=== PATIENT | female | born 1935 | race Caucasian/White ===

== ENCOUNTER → 2017-04-21 | Outpatient (CLI) | payer OTHER, MEDICARE ==
[~2017-04-21] MED LIST: AMOXICILLIN 50500 M1 PO; ASPIRIN325; B12INJ IM; CARDIZEM CD180 MG PO; CRESTOR5 MG PO; DEMADEX10 MG PO; MOTION RELIEF25 MG PO; OMEGA-31000 M1 PO; SAVAYSA60 MG PO; TENORMIN25 MG PO; VITAMIN D-32000 UNIT PO; VITAMIN D2000 UNIT PO; ZOFRAN ODT4 MG PO
== END ==
LOC: ULTRA 07:45
DX: R22.1 Localized swelling, mass and lump, neck (principal); E01.0 Iodine-deficiency related diffuse (endemic) goiter

== ENCOUNTER → 2018-04-21 | Outpatient (CLI) | payer OTHER, MEDICARE | LOC: CAT 04-19 10:38 | DX: I71.4 Abdominal aortic aneurysm, without rupture (principal); I72.3 Aneurysm of iliac artery; I70.8 Atherosclerosis of other arteries; I51.7 Cardiomegaly; I25.10 Atherosclerotic heart disease of native coronary artery without angina pectoris; N28.1 Cyst of kidney, acquired; R18.8 Other ascites; Z90.49 Acquired absence of other specified parts of digestive tract; Z96.642 Presence of left artificial hip joint ==

== ENCOUNTER 2018-05-10 06:34 | Observation (INO) | payer OTHER, MEDICARE ==
[2018-05-10] VITALS (14 sets, daily range): BP systolic 101–118; BP diastolic 44–82
[~2018-05-10] VITALS: Ht 170.2 cm; Wt 63.1 kg
--- NOTE | ~2018-05-10 | D ---
[facility] [place] [address] DISCHARGE SUMMARY Name: HERO SCHMITZ I Room #: REG Mary CobianNicholasGeo.#: [id number] Admission: 05/10/18 ������������������ Attend Phys: Ritesh Leyva MD, Discharge: ������������������ Date of : 35 Report #: [id number] THIS REPORT FOR: //name// CC: Ritesh Sifuentes DATE OF SERVICE: 05/10/2018 DISCHARGE DIAGNOSES: 1. Unstable angina with severe proximal LAD disease for which she underwent stenting with a 4.0 x 12 mm Integrity bare-metal stent, dilated to 4.8 mm with a noncompliant balloon. 2. Permanent atrial fibrillation. 3. Secundum atrial septal defect. 4. Abdominal aortic aneurysm, infrarenal. 5. Dyslipidemia. 6. Bilateral asymptomatic carotid stenoses. 7. Chronic liver disease. HISTORY OF PRESENT ILLNESS: For the complete details of the history of present illness, see dictated history and physical. Briefly, the patient is an 82-year-old woman with remote bypass surgery, permanent atrial fibrillation, hypertension and recently identified abdominal aortic aneurysm and secundum-type atrial septal defect. She recently underwent abdominal aortography and coronary angiography. 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 She now presents for intervention to the proximal LAD. HOSPITAL COURSE: The patient underwent coronary angiography and intervention to the proximal LAD with initial angioplasty and then stenting with a 4.0 x 12 mm Integrity bare-metal stent. She was treated with heparin, Integrilin, aspirin and Plavix in the periprocedural setting. She was ambulating and pain free with excellent groin hemostasis at the time of discharge. A bare-metal stent was used for two reasons; one was a very large diameter vessel with low risk for restenosis and plans are underway for abdominal aortic stent graft repair, probably within the next couple of months. Her medicines were reconciled. DISCHARGE DIET: Low fat, low cholesterol, prudent diabetic diet. DISCHARGE MEDICINES: Atenolol 25 mg twice daily, apixaban 5 mg twice daily starting on the , diltiazem CD 240 mg daily, rosuvastatin 5 mg daily, torsemide 20 mg daily, and a multivitamin. Arrangements were made to see me back in the office in one month. [address] [address] DISCHARGE SUMMARY Name: HERO SCHMITZ I Room #: REG GEENAMary Leggett#: [id number] Admission: 05/10/18 ������������������ Attend Phys: Ritesh Leyva MD, Discharge: ������������������ Date of : 35 Report #: [id number] ACTIVITY: As instructed post-catheterization. DISCHARGE CONDITION: Stable and improved. ��������������������������������������������� ���������������������������������������� By: ��������������������������������������������� 1013 1032 Ritesh Leyva MD, FACC /nt
[~2018-05-10 06:34] MED LIST changes: -CARDIZEM CD180 MG PO; +CARDIZEM CD240 MG PO
[2018-05-10 07:24] LABS: HEMATOCRIT 43.4 % (37.0-47.0); HEMOGLOBIN 14.4 gm/dL (12.0-15.0); MCH 32.2 pg (26.0-34.0); MCHC 33.1 g/dL (28.0-37.0); MCV 97.2 fL (80.0-100.0); RBC 4.46 mil/uL (4.20-5.00); RDW 14.5 % (10.5-14.5); WBC 4.6 thou/uL (4.0-11.0)
[2018-05-10] MEDS ORDERED: ELIQUIS5 MG PO (07:26)
[2018-05-10 07:35] LABS: CALCIUM 9.1 mg/dL (8.5-10.1); POTASSIUM 4.1 mmol/L (3.5-5.1)
--- NOTE | 2018-05-10 10:07 | CATHLAB ---
[facility] [address] [facility] [place] [address] INVASIVE PROCEDURE REPORT Name: HERO SCHMITZ I [facility]: [facility] [id number] ������������� Admission: 05/10/18 ������������� Attend Phys: Ritesh Leyva, Discharge: ��� ������������� ��� Date of : 35 Date of Service: 05/10/18 1006 �� Report #: [id number] �������� ��������������������������������������������[id number] THIS REPORT FOR: //name// APPROVED REPORT Study performed: 05/10/2018 07:36:29 Patient Details Patient Status: Out-Patient Room #: The patient is a 82 year-old female Event Personnel Ritesh Leyva Irrigation Teacher, Meg Hong, Guillermo Handley Penny, Wes RN Procedures Performed Art Access - R femoral artery* BMS Place w/wo Plasty Single LAD [id number] BMSSINGLE Hemostasis with Manual pressure Indication Chest pain Procedure Narrative The patient was brought electively to the Cardiac Catheterization Laboratory and was prepped and draped in a sterile manner. The right femoral vein was infiltrated with 1% Lidocaine subcutaneous anesthesia. A PINNACLE 6FR Sheath #[id number] sheath was inserted into the RFA^. Coronary angiography was performed using coronary diagnostic catheters. Hemostasis was obtained with manual pressure following sheath removal without any complications. The patient tolerated the procedure well and there were no complications associated with the procedure. There was no hematoma. Intraoperative Conscious Sedation Sedation start time: 7.51 Case end Time: 9.15 Fentanyl 50 mcg Versed 1.5 mg Fluoro Time: 19.48 minutes Dose: DAP 9625.50 cGycm2 1476 mGy Contrast Type and Amount: Visipaque 235 ml Coronary Angiography The patient's coronary anatomy is right dominant. [facility] [place] [address] [place] [address] INVASIVE PROCEDURE REPORT Name: HERO SCHMITZ I Room #: REG [facility]#: [id number] ������������� Admission: 05/10/18 ������������� Attend Phys: Ritesh Leyva, Discharge: ��� ������������� ��� Date of : 35 Date of Service: 05/10/18 1006 �� Report #: [id number] �������� ��������������������������������������������[id number] Hemodynamics The aortic pressure is 115/68 mmHg with a mean of 91 mmHg. PCI Technique Lesion Anticoagulation was achieved with Heparin, Integrilin. Patient was preloaded with Plavix. Percutaneous coronary intervention was performed on the proximal left anterior descending artery segment. The lesion stenosis prior to intervention was 95% with DICK 3 flow. A LAUNCHER 6FR EBU 3.5 #[id number] Guide Catheter was used to engage the left main ostium. A Luge Wire .014 x 182CM #[id number] Interventional Guidewire was used to cross the lesion. BALLOON DILATION A Balloon catheter Euphora RX 3.0 x 12 #[id number] was inserted and inflated up to 18.00atm for 40seconds. Repeat angiography revealed the following post-dilatation results: moderate residual stenosis despite multiple high pressure inflations with several noncompliant balloons.. 2.5 x 12 NC TREK 3.5 X 8 NC TREK 02/12 STENT DEPLOYMENT A bare metal stent INTEGRITY RX 4.0 X 12 #[id number] was inserted and inflated up to 15.00atm for 23seconds. Repeat angiography revealed the following post-stent deployment results: 20% residual stenosis. POST STENT DEPLOYMENT BALLOON DILATION A Balloon catheter TREK NC RX 4.5 X 8 #[id number] was inserted and inflated up to 20.00atm for 28seconds. Repeat angiography revealed the following post-dilatation results: mild 10% residual stenosis. Additional Inflation: 22.00atm for 20seconds. Final angiography reveals 5 % stenosis with DICK 3 flow. COMMENTS Very bulky, calcified stenosis initially treated with gradually increasing-sized noncompliant balloons, then treated with a bare metal stent dilated to close to 4.8 mm with a noncompliant balloon Conclusion 1. For the full details of the diagnostic study see prior angiographic dictation 2. Mild left main plaquing 3. Severe 95% proximal LAD stenosis successfully ballooned and [facility] [address] [place] [address] INVASIVE PROCEDURE REPORT Name: HERO SCHMITZ I Room #: REG CL Betsey#: [id number] ������������� Admission: 05/10/18 ������������� Attend Phys: Ritesh Leyva, Discharge: ��� ������������� ��� Date of : 35 Date of Service: 05/10/18 1006 �� Report #: [id number] �������� ��������������������������������������������[id number] stented with a 4.5 x 12 mm Integrity bare-metal stent, dilated to close to 4.8 mm with a noncompliant balloon Recommendations Cardiac Rehabilitation Referral Aggressive Medical Therapy ��������������������������������������������� <ELECTRONICALLY SIGNED> ���������������������������������������� By: Ritesh Leyva MD, [facility] ��������������������������������������������� 05/10/18 1006 05 05 Ritesh Leyva MD, FAC /INF
[2018-05-10] MEDS ORDERED: PLAVIX 75 MG TA75 M1 PO (10:17)
--- NOTE | 2018-05-10 17:14 | EKG ---
[address] [address] ELECTROCARDIOGRAM REPORT Name: HERO SCHMITZ I Room #: 200-I [facility]#: [id number] ������������������ Admission: 05/10/18 ������������������ Attend Phys: Ritesh Leyva MD, Discharge: ������������������ Date of : 35 Report #: [id number] ����������������������������������������������������������������� [id number] THIS REPORT FOR: //name// [facility] Test Date: 2018-05-10 Test Time: 07:25:48 Pat Name: HERO SCHMITZ Department: Room: 200 Gender: F Manager Audit: Timmy TIAN : 1935 Requested By: Ritesh Leyva Order Number: [id number] MD: Ritesh Leyva Measurements Intervals [place] Rate: 94 P: [place]: QRS: 98 QRSD: 133 T: 11 QT: 380 QTc: 476 Interpretive Statements Atrial fibrillation Rightward axis Right ventricular conduction delay Compared to ECG 03/13/2016 07:11:40 No significant change was found Electronically Signed On 05-10-2018 17:14:44 CDT by Ritesh Leyva [email or web address] ��������������������������������������������� <ELECTRONICALLY SIGNED> ���������������������������������������� By: Ritesh Leyva MD, [facility] ��������������������������������������������� 05/10/18 1714 Ritesh Leyva MD, [facility] /EPI
--- NOTE | 2018-05-10 17:17 | EKG ---
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 TIAN : 1935 Requested By: Ritesh Leyva Order Number: [id number] MD: Ritesh Leyva Measurements Intervals [place] Rate: 99 P: [place]: QRS: 97 QRSD: 112 T: 10 QT: 404 QTc: 519 Interpretive Statements Atrial fibrillation Probable anteroseptal infarct, old Prolonged QT interval Compared to ECG 03/13/2016 07:11:40 No significant change was found Electronically Signed On 05-10-2018 17:17:41 CDT by Ritesh Leyva [email or web address] ��������������������������������������������� <ELECTRONICALLY SIGNED> ���������������������������������������� By: Ritesh Leyva MD, [facility] ��������������������������������������������� 05/10/18 1717 0940 0940 Ritesh Leyva MD, [facility] /EPI
--- NOTE | 2018-05-10 17:31 | NUR ---
PT ARRIVED FROM [facility] POST STENT PLACEMENT AT APPROX 1055. PT ALERT AND ORIENTED X4. DENIES SOA. C/O 8/10 LBP. TILTING PT TO RIGHT SIDE AND THEN BACK INTERMITTENTLY FOR REPOSITIONING TO HELP MANAGE LOWER BACK PAIN. DR AGUIRRE AWARE. TYLENOL GIVEN TO MANAGE PAIN WELL. VSS. PT'S DAUGHTER AT BEDSIDE. BOTH DENY QUESTIONS OR CONCERNS REGARDING POST CATH POC. RIGHT GROIN POST CATH SITE C/D/I. NO HEMATOMA PRESENT. STEADY GAIT WAS ASSESSED AFTER BEDREST WAS COMPLETED. PT REPORTS RELIEF IN LOWER BACK PAIN. POST CATH IVF INFUSED AND PT SALINE LOCKED AT THIS TIME. NO DISTRESS NOTED.
[2018-05-11 00:35] VITALS: BP 105/62
[2018-05-11 03:29] VITALS: BP 115/55
[2018-05-11 03:58] LABS: CALCIUM 8.7 mg/dL (8.5-10.1); CREATININE 0.8 mg/dL (0.6-1.0); POTASSIUM 4.2 mmol/L (3.5-5.1); TOTAL BILIRUBIN 0.9 mg/dL (<0.1-1.0); TOTAL PROTEIN 6.2 g/dL (6.4-8.2); TROPONIN-I 0.16 ng/mL (<0.06)
--- NOTE | 2018-05-11 04:08 | NUR ---
PT. OVER CHAIR DURING SHIFT CHANGE; AOX4; NO C/O PAIN THROUGH THE NIGHT; VS WNL; R. GROIN INTACT; NO HEMATOMA; NO PAIN; SOME BRIGHT RED DISCHARGE FROM NOISE WHEN BLOWING; WATER LUBRICANT GIVEN; ABLE TO REST MOST OF THE NIGHT WITH EYES CLOSE; ASSESSMENT CHARGED; FOLLOWIN POC; WILL PASS ON REPORT.
[2018-05-11 04:32] VITALS: BP 115/55
[2018-05-11 04:39] LABS: HEMATOCRIT 41.3 % (37.0-47.0); HEMOGLOBIN 13.6 gm/dL (12.0-15.0); MCH 32.2 pg (26.0-34.0); MCHC 32.8 g/dL (28.0-37.0); MCV 98.1 fL (80.0-100.0); RBC 4.21 mil/uL (4.20-5.00); RDW 14.8 % (10.5-14.5); WBC 4.7 thou/uL (4.0-11.0)
[2018-05-11 07:15] VITALS: BP 105/71
[2018-05-11 11:10] VITALS: BP 105/71
--- NOTE | 2018-05-11 17:59 | EKG ---
[address] [address] ELECTROCARDIOGRAM REPORT Name: HERO SCHMITZ Mary Room #: 200-I [facility]#: [id number] ������������������ Admission: 05/10/18 ������������������ Attend Phys: Ritesh Leyva MD, Discharge: 05/11/18 ������������������ Date of : 35 Report #: [id number] ����������������������������������������������������������������� [id number] THIS REPORT FOR: //name// [facility] Test Date: 2018-05-11 Test Time: 07:04:59 Pat Name: HERO SCHMITZ Department: Room: 200 I Gender: F Neuroscientist: : 1935 Requested By: Ritesh Leyva Order Number: [id number] MD: Ritesh Leyva Measurements Intervals [place] Rate: 88 P: PA: QRS: 95 QRSD: 112 T: 0 QT: 393 QTc: 476 Interpretive Statements Atrial fibrillation Borderline intraventricular conduction delay Compared to ECG 05/10/2018 09:40:01 Myocardial infarct finding no longer present Prolonged QT interval no longer present Electronically Signed On 05-11-2018 17:59:04 CDT by Ritesh Leyva [email or web address] ��������������������������������������������� <ELECTRONICALLY SIGNED> ���������������������������������������� By: Ritesh Leyva MD, [facility] ��������������������������������������������� 05/11/18 1759 0704 0704 Ritesh Leyva MD, [facility] /EPI
--- NOTE | 2018-05-11 20:39 | NUR ---
ASSUMED CARE AT 0700. PT A&OX4. PT ON ROOM AIR SITTING UP IN CHAIR. VSS. PT DENIES PAIN. PT UP AD RAVI IN ROOM. PT STEADY ON FEET. D/C ORDERED. PHYSICIAN ALREADY GAVE PT PRESCRIPTION FOR PLAVIX. RN GAVE PT MEDICATION CARE NOTES AND D/C PAPERWORK. IV REMOVED INTACT. GROIN SITE SOFT, NO HEMATOMA.
== END 2018-05-11 12:15 | disposition home or self-care (01) ==
LOC: CATH 06:34 → 2N 10:40 → CATH 12:16 → ENTRNSPT 05-11 11:46 → EDTRNSPTSTS 05-11 11:51 → 2N 05-11 12:15
PROVIDERS: ADMIT Internal Medicine
DX: I25.110 Atherosclerotic heart disease of native coronary artery with unstable angina pectoris (principal); I48.2 Chronic atrial fibrillation; E78.5 Hyperlipidemia, unspecified; I65.23 Occlusion and stenosis of bilateral carotid arteries; K76.9 Liver disease, unspecified; I71.4 Abdominal aortic aneurysm, without rupture; Q21.1 Atrial septal defect; I10 Essential (primary) hypertension; Z88.5 Allergy status to narcotic agent; Z72.0 Tobacco use

== ENCOUNTER 2018-06-21 05:14 | Inpatient (IN) | payer OTHER, MEDICARE ==
[2018-06-15 10:17] LABS: ABSOLUTE NEUTROPHILS 2.1 thou/uL (1.4-8.2); BASOPHILS 0.7 % (0.0-2.0); EOSINOPHILS 1.5 % (0.0-3.0); HEMATOCRIT 43.7 % (37.0-47.0); HEMOGLOBIN 14.4 gm/dL (12.0-15.0); LYMPHOCYTES 30.2 % (24.0-44.0); MCH 32.4 pg (26.0-34.0); MCHC 32.8 g/dL (28.0-37.0); MCV 98.6 fL (80.0-100.0); MONOCYTES 6.4 % (1.0-8.0); POLYS 61.2 % (36.0-66.0); RBC 4.43 mil/uL (4.20-5.00); RDW 15.4 % (10.5-14.5); WBC 3.5 thou/uL (4.0-11.0)
[2018-06-15 10:39] LABS: APTT 30.3 Seconds (24.5-32.8); INR 1.2; PROTIME 12.1 Seconds (9.3-11.4)
[2018-06-15 10:51] LABS: ALBUMIN 3.9 g/dL (3.4-5.0); CALCIUM 9.3 mg/dL (8.5-10.1); CREATININE 0.7 mg/dL (0.6-1.0); POTASSIUM 3.6 mmol/L (3.5-5.1); TOTAL BILIRUBIN 0.9 mg/dL (<0.1-1.0)
[2018-06-15 10:52] LABS: URINE BLOOD NEGATIVE (Negative); URINE CLARITY CLEAR; URINE COLOR YELLOW; URINE GLUCOSE-RANDOM* NEGATIVE (Negative); URINE KETONES NEGATIVE (Negative); URINE LEUKOCYTES-REFLEX NEGATIVE (Negative); URINE NITRITE-REFLEX NEGATIVE (Negative); URINE PROTEIN (DIPSTICK) 1+ (Negative); URINE SPECIFIC GRAVITY 1.015 (1.005-1.035)
[2018-06-15 10:54] LABS: ICTOTEST (BILI CONFIRMATORY) Negative (Negative); URINE BILIRUBIN NEGATIVE (Negative)
[2018-06-15 11:01] LABS: BACTERIA-REFLEX 1-9 Few /HPF (None Seen); CASTS None Seen /LPF (None Seen); CRYSTALS None Seen /LPF (None Seen); SQUAMOUS >10 Many /LPF (0-3); URINE RBC 0-2 Rare /HPF (0-2); URINE WBC-REFLEX None Seen /HPF (0-5)
[2018-06-15 11:15] LABS: PLATELET COUNT 79 thou/uL (150-400)
[~2018-06-21] VITALS: Ht 170.2 cm; Wt 64.0 kg
[~2018-06-21 05:14] MED LIST changes: +CARTIA XT240 M1 PO; +ELIQUIS5 MG PO; +PLAVIX 75 MG TA75 M1 PO
[2018-06-21 13:19] VITALS: BP 116/65
[2018-06-21 17:40] VITALS: BP 125/78
--- NOTE | 2018-06-21 18:20 | NUR ---
ARRIVED IN ICU AT 1730 FROM RECOVERY ROOM. DROWSY BUT AWAKENS EASILY AND FOLLOWS COMMANDS. ORIENTED TO PERSON AND PLACE. VITALS STABLE AND DENIES PAIN, BILAT GROIN SITES WITH DRSSINGS C/D/I. A-LINE RT RADIAL WITH ADEQUATE WAVEFORM. HUANG WITH MINIMAL OUTPUT(EMPTIED IN RECOVERY PER REPORT). FAMILY UPDATED AND ICU GUIDELINES AND PRIVACY CODE GIVEN TO SISTER AND DAUGHTER. WILL CONTINUE TO MONITOR.
[2018-06-21 19:43] VITALS: BP 90/39
[2018-06-21 21:42] VITALS: BP 79/37
[2018-06-21 23:42] VITALS: BP 96/58
[2018-06-22] VITALS (20 sets, daily range): BP systolic 80–130; BP diastolic 41–68
[2018-06-22 06:15] LABS: HEMATOCRIT 37.4 % (37.0-47.0); HEMOGLOBIN 12.4 gm/dL (12.0-15.0); MCH 32.4 pg (26.0-34.0); MCHC 33.2 g/dL (28.0-37.0); MCV 97.7 fL (80.0-100.0); RBC 3.83 mil/uL (4.20-5.00); RDW 15.6 % (10.5-14.5); WBC 5.1 thou/uL (4.0-11.0)
[2018-06-22 06:37] LABS: CALCIUM 8.2 mg/dL (8.5-10.1); CREATININE 0.8 mg/dL (0.6-1.0); POTASSIUM 4.2 mmol/L (3.5-5.1)
--- NOTE | 2018-06-22 06:37 | NUR ---
ASSUMED CARE 1900 06/21/18, PT ASSESSMENTS AND VSS COMPLETE PER ICU PROTOCOL. PT ALERT AND ORIENTED X 4, PT ABLE TO FOLLOW COMMANDS, PT HAS HX OF LUMBAR DISC HERNIATION AND SO SHE CANNOT LIE FLAT ON HER BACK. PT IN A-FIB, PT DENIES HX OF AFIB, A LINE IN R RADIAL. PT ON 3L AT THIS TIME, USES 2L OF 02 HS AT HOME, NO SIGNS OF SOA. PT ON 2 GRAM DIET, PT ABLE TO EAT MEAL LAST NIGHT, PO INTAKE GOOD, HUANG IN PLACE. FALL PRECAUTIONS IN PLACE AT THIS TIME. PLAN OF CARE- CONT TO MONITOR
--- NOTE | 2018-06-22 15:19 | EKG ---
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 TIAN : 1935 Requested By: Erasmo Buckner Order Number: [id number] MD: Cj Morgan Measurements Intervals [place] Rate: 122 P: [place]: QRS: 86 QRSD: 105 T: -2 QT: 326 QTc: 465 Interpretive Statements Atrial fibrillation Borderline right axis deviation Borderline low voltage, extremity leads Abnormal R-wave progression, late transition Nonspecific repol abnormality, diffuse leads Compared to ECG 05/11/2018 07:04:59 Early repolarization now present Electronically Signed On 06-22-2018 15:19:03 CDT by Cj Morgan [email or web address] ��������������������������������������������� <ELECTRONICALLY SIGNED> ���������������������������������������� By: Cj Morgan MD ��������������������������������������������� 06/22/18 1519 1350 1350 Cj Morgan MD /EPI
--- NOTE | 2018-06-22 16:19 | NUR ---
PT IS ALERT AND ORIENTED X4. LUNGS ARE CLEAR TO DIMINISHED. ON 2 LITERS OXYGEN NASAL CANULA. AFIB ON THE MONITOR. ARTERIAL LINE PULLED. CARDIOLOGY CONSULTED PT NOT FEELING WELL NAUSEA, HEART BURN. CARDIOLOGY RESUMED MEDS AND PT IS FEELING BETTER NOW. RESTING IN BED. HAS BEEN OUT OF BED TO THE CHAIR. HAS CHRONIC BACK PAIN. [employer] RVR 122. HEART BURN AND NAUSEA RESOLVED. SCDS ON BILATERAL. FAMILY AT BEDSIDE THIS AM FOR SUPPORT. WILL CONTINUE ONGOING CARE AND TREATEMENT PER NURSING
--- NOTE | 2018-06-22 22:58 | NUR ---
ASSUMED CARE @ 1900 06/22/18, PT ASSESSMENTS AND VSS COMPLETED PER ICU PROTOCOL. ALERT AND ORIENTED X 4, PT ABLE TO FOLLOW COMMANDS, HX OF LUMBAR DISC HERNIATION, PT NOT ABLE TO LAY ON HER BACK. PT ENCOUNTERED ON THE CHAIR, PT REFUSES TO GO TO BED, SHE STATES SHE IS MORE COMFORTABLE IN THE CHAIR. PT ON 3L SATS IN THE HIGH 90'S, NO SIGNS OF SOA. DAUGHTER HERE TO VISIT WITH. REPORT GIVEN TO WALTER GRIGGS. PLAN OF CARE- CONT TO MONITOR.
[2018-06-23] VITALS (9 sets, daily range): BP systolic 91–111; BP diastolic 40–69
--- NOTE | 2018-06-23 05:33 | NUR ---
TOOK OVER CARE OF PATIENT AT 2300. PATIENT SLEEPING IN CHAIR WHICH IS MORE COMFORTABLE TO HER THAN THE BED. SHE HAS CHRONIC BACK PAIN, UNABLE TO SLEEP FLAT ON HER BACK. DENIES CHEST PAIN OR NAUSEA AT THIS TIME. DRINKING WATER. REQUESTED ONE TYLENOL WHEN PAIN WAS 8/10. NO PAIN MEDS REMAINED ON HER MARABDOULAYE,NELLA ADDED TYLENOL. PLAN OF CARE HAS PATIENT TRANSFERING OUT OF ICU.
--- NOTE | 2018-06-23 16:44 | NUR ---
PT DISCHARGING HOME. D/C INSTRUCTIONS REVIEWED WITH PATIENT AND SISTER. PT VERBALIZES UNDERSTANDING. THERE ARE NO NEW RX AT THIS TIME. ALL BELONGINGS SENT WITH PT
--- NOTE | 2018-06-25 12:06 | O ---
[facility] [place] [address] OPERATIVE REPORT Name: HERO SCHMITZ I Room #: 245-P [facility] IN M.R.#: [id number] Admission: 06/21/18 ������������������ Attend Phys: Erasmo Buckner MD Discharge: 06/23/18 ������������������ Date of : 35 Report #: [id number] THIS REPORT FOR: //name// CC: Erasmo Sifuentes DATE OF SERVICE: 06/21/2018 PREOPERATIVE DIAGNOSIS: Abdominal aortic aneurysm. POSTOPERATIVE DIAGNOSIS: Abdominal aortic aneurysm. OPERATION: Stent graft implant for abdominal aortic aneurysm and intraoperative arteriograms. SURGEON: Dr. Erasmo Buckner and Dr. Guillermo Dennison. ANESTHESIA: General. INDICATIONS: The patient is an 82-year-old with an infrarenal abdominal aortic aneurysm that measures close to 6 cm in size. There is some ectasia at the distal common iliac arteries, but for the most part, the common iliacs are satisfactory landing zones. FINDINGS AND TECHNIQUE: After general anesthesia was established, incisions were made in both groins to expose the common femoral arteries. 10,000 units of heparin were given and 1000 units an hour were given as appropriate. On each side, the femoral artery was entered with an Amplatz needle followed by guidewire and arterial introducer sheath. Through the sheath, an 0.035 guidewire was passed followed by Berenstein catheter and exchanged for a Armando wire. On the left side, femoral cutdown was made and the sheath was replaced with a 16-Gambian catheter over the Armando wire on the right side and same procedure was done placing a 12-Gambian catheter. Through the left side, the main component was placed. A 23 mm x 14 x 12 cm trunk was placed under fluoroscopic guidance. Through the right side, a visceral catheter was used to access the left renal artery and this was used to determine our stent graft level for placement. Once the main component was in satisfactory position and opened, the contralateral gate was accessed through the right side. A flush arteriogram was done through the sheath on the right to identify the hypogastric takeoff and a 14.5 x 12 cm limb was placed down to the right hypogastric level. [facility] [address] [place] [address] OPERATIVE REPORT Name: HERO SCHMITZ I Room #: 245-P [facility] IN M.R.#: [id number] Admission: 06/21/18 ������������������ Attend Phys: Erasmo Buckner MD Discharge: 06/23/18 ������������������ Date of : 35 Report #: [id number] Through the left side, a flush arteriogram was done and an 18 mm x 11.5 cm limb was placed. When all of the devices were placed in satisfactory position, the arteriogram was taken. This showed an evidence of type 1 leak and decision was made to deploy a 23 mm x 3.3 cm cuff at the proximal level to treat this type 1 leak. Once deployed, the cuff was fully expanded with a noncompliant balloon and a final arteriogram was done that showed no evidence of leak and good position of the graft. With this information, the dilators were replaced in the sheaths, sheaths and dilators were removed, and then the Armando wires were removed. Femoral arteriotomies were closed with interrupted Prolene. Protamine was given to reverse the heparin. When hemostasis was satisfactory, the groin wounds were closed. The patient was taken to the recovery area in good condition. All counts were reported as correct. Good distal circulation was present. ��������������������������������������������� <ELECTRONICALLY SIGNED> ���������������������������������������� By: Erasmo Buckner MD ��������������������������������������������� 06/25/18 1206 1743 1840 Erasmo Buckner MD /nt
== END 2018-06-23 16:14 | disposition home or self-care (01) | DRG 269 ==
LOC: ICU 05:14 → TBA 05:14 → PRE 05:42 → ICU 17:43 → ENTRNSPT 06-23 15:42 → EDTRNSPTSTS 06-23 15:44 → ICU 06-23 16:14
PROVIDERS: Physician Assistant; ADMIT Surgery Vascular Surgery
DX: I71.4 Abdominal aortic aneurysm, without rupture (principal); D68.59 Other primary thrombophilia; Q21.1 Atrial septal defect; I10 Essential (primary) hypertension; J44.9 Chronic obstructive pulmonary disease, unspecified; E78.5 Hyperlipidemia, unspecified; I25.10 Atherosclerotic heart disease of native coronary artery without angina pectoris; M19.90 Unspecified osteoarthritis, unspecified site; I48.2 Chronic atrial fibrillation; D69.6 Thrombocytopenia, unspecified; K76.9 Liver disease, unspecified; G89.29 Other chronic pain; M54.5 Low back pain; Z88.6 Allergy status to analgesic agent; Z88.2 Allergy status to sulfonamides; Z88.8 Allergy status to other drugs, medicaments and biological substances; Z82.41 Family history of sudden cardiac death; Z90.710 Acquired absence of both cervix and uterus; Z90.49 Acquired absence of other specified parts of digestive tract; Z82.49 Family history of ischemic heart disease and other diseases of the circulatory system; Z87.891 Personal history of nicotine dependence; Z99.81 Dependence on supplemental oxygen; Z95.5 Presence of coronary angioplasty implant and graft
CPT/HCPCS: 10078; 47375; 48888; 50010; 50101; 50386; 50455; 51078; 51751; 54118; 56524; 56526; 56531; 56668; 56760; 57093; 62110; 62900; 65120; 70005

== ENCOUNTER → 2018-07-11 | Outpatient (CLI) | payer OTHER, MEDICARE | LOC: ULTRA 07:22 | DX: M79.89 Other specified soft tissue disorders (principal); M79.604 Pain in right leg; R60.9 Edema, unspecified ==

== ENCOUNTER → 2018-07-24 | Outpatient (CLI) | payer OTHER, MEDICARE ==
[2018-07-24 08:31] LABS: CREATININE 0.9 mg/dL (0.6-1.0)
== END ==
LOC: CAT 07:43
PROVIDERS: Nuclear Medicine Nuclear Cardiology
DX: I71.4 Abdominal aortic aneurysm, without rupture (principal); I72.3 Aneurysm of iliac artery; I25.10 Atherosclerotic heart disease of native coronary artery without angina pectoris; I51.7 Cardiomegaly; M43.16 Spondylolisthesis, lumbar region; M47.816 Spondylosis without myelopathy or radiculopathy, lumbar region; J98.4 Other disorders of lung; J98.11 Atelectasis; Z95.828 Presence of other vascular implants and grafts; Z90.49 Acquired absence of other specified parts of digestive tract; Z88.6 Allergy status to analgesic agent; Z88.8 Allergy status to other drugs, medicaments and biological substances; Z88.0 Allergy status to penicillin; Z88.1 Allergy status to other antibiotic agents

== ENCOUNTER → 2018-10-31 | Outpatient (CLI) | payer OTHER, MEDICARE | LOC: HYPER 06:44 | DX: I87.332 Chronic venous hypertension (idiopathic) with ulcer and inflammation of left lower extremity (principal); L97.821 Non-pressure chronic ulcer of other part of left lower leg limited to breakdown of skin; I48.91 Unspecified atrial fibrillation; I25.10 Atherosclerotic heart disease of native coronary artery without angina pectoris; E78.00 Pure hypercholesterolemia, unspecified; E78.5 Hyperlipidemia, unspecified; I42.9 Cardiomyopathy, unspecified; R60.0 Localized edema; F17.200 Nicotine dependence, unspecified, uncomplicated; Z79.01 Long term (current) use of anticoagulants ==

== ENCOUNTER → 2018-11-07 | Outpatient (CLI) | payer OTHER, MEDICARE | LOC: HYPER 07:14 | DX: I87.332 Chronic venous hypertension (idiopathic) with ulcer and inflammation of left lower extremity (principal); L97.821 Non-pressure chronic ulcer of other part of left lower leg limited to breakdown of skin; I48.91 Unspecified atrial fibrillation; I42.9 Cardiomyopathy, unspecified; I25.10 Atherosclerotic heart disease of native coronary artery without angina pectoris; E78.00 Pure hypercholesterolemia, unspecified; K76.1 Chronic passive congestion of liver; E78.5 Hyperlipidemia, unspecified; R60.0 Localized edema; F17.200 Nicotine dependence, unspecified, uncomplicated; Z79.01 Long term (current) use of anticoagulants ==

== ENCOUNTER → 2018-11-14 | Outpatient (CLI) | payer OTHER, MEDICARE | LOC: HYPER 06:33 | DX: I87.332 Chronic venous hypertension (idiopathic) with ulcer and inflammation of left lower extremity (principal); L97.821 Non-pressure chronic ulcer of other part of left lower leg limited to breakdown of skin; E78.5 Hyperlipidemia, unspecified; M16.10 Unilateral primary osteoarthritis, unspecified hip; E78.00 Pure hypercholesterolemia, unspecified; I48.91 Unspecified atrial fibrillation; I25.10 Atherosclerotic heart disease of native coronary artery without angina pectoris; K76.89 Other specified diseases of liver; F17.200 Nicotine dependence, unspecified, uncomplicated; Z79.01 Long term (current) use of anticoagulants ==

== ENCOUNTER → 2018-11-21 | Outpatient (CLI) | payer OTHER, MEDICARE | LOC: HYPER 08:00 | DX: I87.332 Chronic venous hypertension (idiopathic) with ulcer and inflammation of left lower extremity (principal); L97.821 Non-pressure chronic ulcer of other part of left lower leg limited to breakdown of skin; I48.91 Unspecified atrial fibrillation; I25.10 Atherosclerotic heart disease of native coronary artery without angina pectoris; E78.00 Pure hypercholesterolemia, unspecified; E78.5 Hyperlipidemia, unspecified; R60.0 Localized edema; F17.200 Nicotine dependence, unspecified, uncomplicated; Z79.01 Long term (current) use of anticoagulants ==

== ENCOUNTER → 2018-11-28 | Outpatient (CLI) | payer OTHER, MEDICARE | LOC: HYPER 14:21 | DX: I87.332 Chronic venous hypertension (idiopathic) with ulcer and inflammation of left lower extremity (principal); L97.821 Non-pressure chronic ulcer of other part of left lower leg limited to breakdown of skin; I48.91 Unspecified atrial fibrillation; I42.9 Cardiomyopathy, unspecified; I25.10 Atherosclerotic heart disease of native coronary artery without angina pectoris; E78.00 Pure hypercholesterolemia, unspecified; E78.5 Hyperlipidemia, unspecified; R60.0 Localized edema; F17.200 Nicotine dependence, unspecified, uncomplicated; Z79.01 Long term (current) use of anticoagulants ==

== ENCOUNTER → 2018-12-05 | Outpatient (CLI) | payer OTHER, MEDICARE | LOC: HYPER 08:00 | DX: I87.332 Chronic venous hypertension (idiopathic) with ulcer and inflammation of left lower extremity (principal); L97.821 Non-pressure chronic ulcer of other part of left lower leg limited to breakdown of skin; T24.302A Burn of third degree of unspecified site of left lower limb, except ankle and foot, initial encounter; S80.12XA Contusion of left lower leg, initial encounter; S81.802A Unspecified open wound, left lower leg, initial encounter; S81.812A Laceration without foreign body, left lower leg, initial encounter; R60.0 Localized edema; I48.91 Unspecified atrial fibrillation; I42.9 Cardiomyopathy, unspecified; I25.10 Atherosclerotic heart disease of native coronary artery without angina pectoris; E78.00 Pure hypercholesterolemia, unspecified; E78.5 Hyperlipidemia, unspecified; K76.1 Chronic passive congestion of liver; M16.10 Unilateral primary osteoarthritis, unspecified hip; F17.200 Nicotine dependence, unspecified, uncomplicated; Z79.01 Long term (current) use of anticoagulants; T31.0 Burns involving less than 10% of body surface; X08.8XXA Exposure to other specified smoke, fire and flames, initial encounter; Y93.89 Activity, other specified; Y92.89 Other specified places as the place of occurrence of the external cause; Y99.8 Other external cause status ==

== ENCOUNTER → 2018-12-19 | Outpatient (CLI) | payer OTHER, MEDICARE | LOC: HYPER 12-12 16:55 | DX: I87.332 Chronic venous hypertension (idiopathic) with ulcer and inflammation of left lower extremity (principal); L97.821 Non-pressure chronic ulcer of other part of left lower leg limited to breakdown of skin; I42.9 Cardiomyopathy, unspecified; I48.91 Unspecified atrial fibrillation; I25.10 Atherosclerotic heart disease of native coronary artery without angina pectoris; E78.00 Pure hypercholesterolemia, unspecified; E78.5 Hyperlipidemia, unspecified; R60.0 Localized edema; F17.200 Nicotine dependence, unspecified, uncomplicated; Z79.01 Long term (current) use of anticoagulants ==

== ENCOUNTER → 2019-01-09 | Outpatient (CLI) | payer OTHER, MEDICARE | LOC: HYPER 08:00 | DX: I87.332 Chronic venous hypertension (idiopathic) with ulcer and inflammation of left lower extremity (principal); L97.821 Non-pressure chronic ulcer of other part of left lower leg limited to breakdown of skin; I48.91 Unspecified atrial fibrillation; I42.9 Cardiomyopathy, unspecified; I25.10 Atherosclerotic heart disease of native coronary artery without angina pectoris; E78.00 Pure hypercholesterolemia, unspecified; E78.5 Hyperlipidemia, unspecified; K76.89 Other specified diseases of liver; F17.200 Nicotine dependence, unspecified, uncomplicated; Z79.01 Long term (current) use of anticoagulants ==

== ENCOUNTER → 2019-01-23 | Outpatient (CLI) | payer OTHER, MEDICARE | LOC: HYPER 01:03 | DX: I87.332 Chronic venous hypertension (idiopathic) with ulcer and inflammation of left lower extremity (principal); L97.821 Non-pressure chronic ulcer of other part of left lower leg limited to breakdown of skin; I48.91 Unspecified atrial fibrillation; I42.9 Cardiomyopathy, unspecified; I25.10 Atherosclerotic heart disease of native coronary artery without angina pectoris; E78.00 Pure hypercholesterolemia, unspecified; E78.5 Hyperlipidemia, unspecified; K76.1 Chronic passive congestion of liver; R60.0 Localized edema; F17.200 Nicotine dependence, unspecified, uncomplicated; Z79.01 Long term (current) use of anticoagulants ==

== ENCOUNTER → 2019-01-23 | Outpatient (CLI) | payer OTHER, MEDICARE | LOC: HYPER 16:20 | DX: I87.332 Chronic venous hypertension (idiopathic) with ulcer and inflammation of left lower extremity (principal); L97.821 Non-pressure chronic ulcer of other part of left lower leg limited to breakdown of skin; I42.9 Cardiomyopathy, unspecified; I25.10 Atherosclerotic heart disease of native coronary artery without angina pectoris; E78.00 Pure hypercholesterolemia, unspecified; K76.1 Chronic passive congestion of liver; E78.5 Hyperlipidemia, unspecified; R60.0 Localized edema; F17.200 Nicotine dependence, unspecified, uncomplicated; Z79.01 Long term (current) use of anticoagulants ==

== ENCOUNTER → 2019-01-30 | Outpatient (CLI) | payer OTHER, MEDICARE | LOC: HYPER 09:14 | DX: I87.332 Chronic venous hypertension (idiopathic) with ulcer and inflammation of left lower extremity (principal); L97.821 Non-pressure chronic ulcer of other part of left lower leg limited to breakdown of skin; I48.91 Unspecified atrial fibrillation; I42.9 Cardiomyopathy, unspecified; I25.10 Atherosclerotic heart disease of native coronary artery without angina pectoris; E78.00 Pure hypercholesterolemia, unspecified; E78.5 Hyperlipidemia, unspecified; R60.0 Localized edema; F17.200 Nicotine dependence, unspecified, uncomplicated; Z79.01 Long term (current) use of anticoagulants ==

== ENCOUNTER → 2019-08-13 | Outpatient (CLI) | payer OTHER, MEDICARE | LOC: CAT 08:21 | PROVIDERS: ATTEND Nuclear Medicine Nuclear Cardiology | DX: I71.4 Abdominal aortic aneurysm, without rupture (principal); Z95.828 Presence of other vascular implants and grafts; I51.7 Cardiomegaly; I72.3 Aneurysm of iliac artery ==

== ENCOUNTER → 2019-08-28 | Outpatient (CLI) | payer OTHER, MEDICARE | LOC: SJCVC 09:46 | PROVIDERS: ATTEND Nuclear Medicine Nuclear Cardiology | DX: I71.4 Abdominal aortic aneurysm, without rupture (principal); I73.9 Peripheral vascular disease, unspecified; I25.10 Atherosclerotic heart disease of native coronary artery without angina pectoris; I48.21 Permanent atrial fibrillation; E78.00 Pure hypercholesterolemia, unspecified; Q21.1 Atrial septal defect; F17.210 Nicotine dependence, cigarettes, uncomplicated; Z98.890 Other specified postprocedural states; Z90.49 Acquired absence of other specified parts of digestive tract; Z95.1 Presence of aortocoronary bypass graft; Z90.710 Acquired absence of both cervix and uterus; Z90.09 Acquired absence of other part of head and neck; Z82.49 Family history of ischemic heart disease and other diseases of the circulatory system ==

== ENCOUNTER → 2019-10-05 | Outpatient (CLI) | payer OTHER, MEDICARE | LOC: SJCVC 10:38 | PROVIDERS: ATTEND Internal Medicine | DX: R94.31 Abnormal electrocardiogram [ECG] [EKG] (principal); I45.10 Unspecified right bundle-branch block; I48.21 Permanent atrial fibrillation; I25.10 Atherosclerotic heart disease of native coronary artery without angina pectoris; I65.23 Occlusion and stenosis of bilateral carotid arteries; E78.5 Hyperlipidemia, unspecified; I71.4 Abdominal aortic aneurysm, without rupture; K76.9 Liver disease, unspecified; F17.210 Nicotine dependence, cigarettes, uncomplicated; Z98.890 Other specified postprocedural states; Z79.899 Other long term (current) drug therapy ==

== ENCOUNTER → 2020-04-16 | Outpatient (CLI) | payer OTHER, MEDICARE | LOC: CAT 13:50 | PROVIDERS: ATTEND Nuclear Medicine Nuclear Cardiology | DX: I71.4 Abdominal aortic aneurysm, without rupture (principal); I25.10 Atherosclerotic heart disease of native coronary artery without angina pectoris; Z95.828 Presence of other vascular implants and grafts ==

== ENCOUNTER → 2020-04-22 | Outpatient (CLI) | payer OTHER, MEDICARE | LOC: SJCVC 16:19 | PROVIDERS: ATTEND Nuclear Medicine Nuclear Cardiology | DX: I71.4 Abdominal aortic aneurysm, without rupture (principal); I48.21 Permanent atrial fibrillation; I77.9 Disorder of arteries and arterioles, unspecified; E78.00 Pure hypercholesterolemia, unspecified; I25.10 Atherosclerotic heart disease of native coronary artery without angina pectoris; K76.9 Liver disease, unspecified; I25.5 Ischemic cardiomyopathy; I50.9 Heart failure, unspecified; E78.5 Hyperlipidemia, unspecified; Z98.890 Other specified postprocedural states; Z79.01 Long term (current) use of anticoagulants; Z87.891 Personal history of nicotine dependence; Z79.899 Other long term (current) drug therapy; Z88.5 Allergy status to narcotic agent; Z88.1 Allergy status to other antibiotic agents; Z88.2 Allergy status to sulfonamides; Z88.8 Allergy status to other drugs, medicaments and biological substances ==

== ENCOUNTER → 2020-10-14 | Outpatient (CLI) | payer OTHER, MEDICARE | LOC: SJCVCIMAG 08:12 | PROVIDERS: ATTEND Internal Medicine | DX: I08.1 Rheumatic disorders of both mitral and tricuspid valves (principal); R26.81 Unsteadiness on feet; I65.23 Occlusion and stenosis of bilateral carotid arteries; I49.3 Ventricular premature depolarization; I49.1 Atrial premature depolarization; I25.2 Old myocardial infarction; I25.10 Atherosclerotic heart disease of native coronary artery without angina pectoris; I11.0 Hypertensive heart disease with heart failure; I50.9 Heart failure, unspecified; I48.21 Permanent atrial fibrillation; Q21.1 Atrial septal defect; E78.5 Hyperlipidemia, unspecified; I71.4 Abdominal aortic aneurysm, without rupture; K76.9 Liver disease, unspecified; E78.00 Pure hypercholesterolemia, unspecified; F17.210 Nicotine dependence, cigarettes, uncomplicated; Z95.1 Presence of aortocoronary bypass graft; Z86.16 Personal history of COVID-19; Z98.890 Other specified postprocedural states; Z79.899 Other long term (current) drug therapy; Z88.5 Allergy status to narcotic agent; Z88.0 Allergy status to penicillin; Z88.2 Allergy status to sulfonamides; Z88.1 Allergy status to other antibiotic agents; Z88.8 Allergy status to other drugs, medicaments and biological substances ==

== ENCOUNTER 2020-12-08 14:23 | Emergency (ER) | payer OTHER, MEDICARE ==
[~2020-12-08] VITALS: Ht 170.2 cm; Wt 63.0 kg
[2020-12-08 15:23] LABS: ABSOLUTE NEUTROPHILS 4.6 thou/uL (1.4-8.2); BASOPHILS 0.4 % (0.0-2.0); EOSINOPHILS 0.3 % (0.0-3.0); HEMATOCRIT 39.8 % (37.0-47.0); LYMPHOCYTES 16.6 % (24.0-44.0); MCH 32.7 pg (26.0-34.0); MCHC 32.8 g/dL (28.0-37.0); MCV 99.7 fL (80.0-100.0); MONOCYTES 6.6 % (1.0-8.0); PLATELET COUNT 101 thou/uL (150-400); POLYS 76.1 % (36.0-66.0); RBC 3.99 mil/uL (4.20-5.00); RDW 15.5 % (10.5-14.5)
[2020-12-08 15:47] LABS: CALCIUM 8.9 mg/dL (8.5-10.1); CREATININE 1.3 mg/dL (0.6-1.0); POTASSIUM 3.8 mmol/L (3.5-5.1)
[2020-12-08 15:52] LABS: ALBUMIN 3.7 g/dL (3.4-5.0); TOTAL BILIRUBIN 1.2 mg/dL (0.2-1.0); TOTAL PROTEIN 7.3 g/dL (6.4-8.2)
[2020-12-08 17:43] VITALS: BP 96/46
[2020-12-08] MEDS ORDERED: DOXYCYCLINE 10100 MG PO (18:00)
== END 2020-12-08 17:43 | disposition home or self-care (01) ==
LOC: ER 14:23
PROVIDERS: Emergency Medicine
DX: S80.12XA Contusion of left lower leg, initial encounter (principal); I10 Essential (primary) hypertension; E78.00 Pure hypercholesterolemia, unspecified; Z90.710 Acquired absence of both cervix and uterus; Z90.49 Acquired absence of other specified parts of digestive tract; Z79.899 Other long term (current) drug therapy; Z88.5 Allergy status to narcotic agent; Z88.2 Allergy status to sulfonamides; Z88.0 Allergy status to penicillin; Z88.8 Allergy status to other drugs, medicaments and biological substances; Z88.9 Allergy status to unspecified drugs, medicaments and biological substances; W18.43XA Slipping, tripping and stumbling without falling due to stepping from one level to another, initial encounter; Y93.89 Activity, other specified; Y92.89 Other specified places as the place of occurrence of the external cause; Y99.8 Other external cause status

== ENCOUNTER → 2020-12-18 | Outpatient (CLI) | payer OTHER, MEDICARE ==
[~2020-12-18] MED LIST changes: +DOXYCYCLINE 10100 MG PO
== END ==
LOC: HYPER 09:17
PROVIDERS: ATTEND Emergency Medicine
DX: S81.812D Laceration without foreign body, left lower leg, subsequent encounter (principal); I87.332 Chronic venous hypertension (idiopathic) with ulcer and inflammation of left lower extremity; L97.822 Non-pressure chronic ulcer of other part of left lower leg with fat layer exposed; R60.0 Localized edema; I48.91 Unspecified atrial fibrillation; I25.10 Atherosclerotic heart disease of native coronary artery without angina pectoris; M16.10 Unilateral primary osteoarthritis, unspecified hip; E78.00 Pure hypercholesterolemia, unspecified; E78.5 Hyperlipidemia, unspecified; E66.9 Obesity, unspecified; F17.200 Nicotine dependence, unspecified, uncomplicated; Z68.21 Body mass index [BMI] 21.0-21.9, adult; Z90.49 Acquired absence of other specified parts of digestive tract; Z95.1 Presence of aortocoronary bypass graft; Z90.710 Acquired absence of both cervix and uterus; Z90.89 Acquired absence of other organs; Z90.10 Acquired absence of unspecified breast and nipple; Z79.899 Other long term (current) drug therapy; X58.XXXD Exposure to other specified factors, subsequent encounter

== ENCOUNTER → 2020-12-22 | Outpatient (CLI) | payer OTHER, MEDICARE | LOC: SJCVCIMAG 14:12 | PROVIDERS: ATTEND Internal Medicine | DX: L97.818 Non-pressure chronic ulcer of other part of right lower leg with other specified severity (principal); L97.828 Non-pressure chronic ulcer of other part of left lower leg with other specified severity; I73.9 Peripheral vascular disease, unspecified; M79.604 Pain in right leg; M79.605 Pain in left leg ==

== ENCOUNTER → 2020-12-22 | Outpatient (CLI) | payer OTHER, MEDICARE | LOC: HYPER 08:19 | PROVIDERS: ATTEND Emergency Medicine Emergency Medical Services | DX: S81.812D Laceration without foreign body, left lower leg, subsequent encounter (principal); I87.332 Chronic venous hypertension (idiopathic) with ulcer and inflammation of left lower extremity; L97.822 Non-pressure chronic ulcer of other part of left lower leg with fat layer exposed; R60.0 Localized edema; I48.91 Unspecified atrial fibrillation; I25.10 Atherosclerotic heart disease of native coronary artery without angina pectoris; M16.10 Unilateral primary osteoarthritis, unspecified hip; E78.00 Pure hypercholesterolemia, unspecified; E78.5 Hyperlipidemia, unspecified; E66.9 Obesity, unspecified; F17.200 Nicotine dependence, unspecified, uncomplicated; Z68.21 Body mass index [BMI] 21.0-21.9, adult; Z90.49 Acquired absence of other specified parts of digestive tract; Z95.1 Presence of aortocoronary bypass graft; Z90.710 Acquired absence of both cervix and uterus; Z90.89 Acquired absence of other organs; Z90.10 Acquired absence of unspecified breast and nipple; X58.XXXD Exposure to other specified factors, subsequent encounter ==

== ENCOUNTER → 2020-12-31 | Outpatient (CLI) | payer OTHER, MEDICARE | LOC: HYPER 08:49 | PROVIDERS: ATTEND Emergency Medicine | DX: S81.802D Unspecified open wound, left lower leg, subsequent encounter (principal); I87.332 Chronic venous hypertension (idiopathic) with ulcer and inflammation of left lower extremity; L97.822 Non-pressure chronic ulcer of other part of left lower leg with fat layer exposed; I87.301 Chronic venous hypertension (idiopathic) without complications of right lower extremity; R60.0 Localized edema; I48.91 Unspecified atrial fibrillation; I25.10 Atherosclerotic heart disease of native coronary artery without angina pectoris; M16.10 Unilateral primary osteoarthritis, unspecified hip; E78.00 Pure hypercholesterolemia, unspecified; K76.89 Other specified diseases of liver; E78.5 Hyperlipidemia, unspecified; E66.9 Obesity, unspecified; F17.200 Nicotine dependence, unspecified, uncomplicated; Z68.21 Body mass index [BMI] 21.0-21.9, adult; Z79.899 Other long term (current) drug therapy; X58.XXXD Exposure to other specified factors, subsequent encounter ==

== ENCOUNTER → 2020-12-31 | Outpatient (CLI) | payer OTHER, MEDICARE | LOC: SJCVCIMAG 11:24 | PROVIDERS: ATTEND Internal Medicine | DX: M79.604 Pain in right leg (principal); M79.605 Pain in left leg; R60.9 Edema, unspecified; I48.91 Unspecified atrial fibrillation; I42.9 Cardiomyopathy, unspecified; I50.9 Heart failure, unspecified; I25.10 Atherosclerotic heart disease of native coronary artery without angina pectoris; E78.00 Pure hypercholesterolemia, unspecified; E78.5 Hyperlipidemia, unspecified; Z79.01 Long term (current) use of anticoagulants; Z79.899 Other long term (current) drug therapy ==

== ENCOUNTER → 2021-01-07 | Outpatient (CLI) | payer OTHER, MEDICARE | LOC: HYPER 09:57 | PROVIDERS: ATTEND Emergency Medicine | DX: S81.802D Unspecified open wound, left lower leg, subsequent encounter (principal); I87.332 Chronic venous hypertension (idiopathic) with ulcer and inflammation of left lower extremity; L97.822 Non-pressure chronic ulcer of other part of left lower leg with fat layer exposed; I87.301 Chronic venous hypertension (idiopathic) without complications of right lower extremity; L03.116 Cellulitis of left lower limb; R60.0 Localized edema; I48.91 Unspecified atrial fibrillation; I25.10 Atherosclerotic heart disease of native coronary artery without angina pectoris; M16.10 Unilateral primary osteoarthritis, unspecified hip; E78.00 Pure hypercholesterolemia, unspecified; K76.89 Other specified diseases of liver; E78.5 Hyperlipidemia, unspecified; E66.9 Obesity, unspecified; F17.200 Nicotine dependence, unspecified, uncomplicated; Z68.21 Body mass index [BMI] 21.0-21.9, adult; X58.XXXD Exposure to other specified factors, subsequent encounter ==

== ENCOUNTER → 2021-01-12 | Outpatient (CLI) | payer OTHER, MEDICARE | LOC: HYPER 10:12 | PROVIDERS: ATTEND Emergency Medicine | DX: S81.802D Unspecified open wound, left lower leg, subsequent encounter (principal); I87.332 Chronic venous hypertension (idiopathic) with ulcer and inflammation of left lower extremity; L97.822 Non-pressure chronic ulcer of other part of left lower leg with fat layer exposed; I87.301 Chronic venous hypertension (idiopathic) without complications of right lower extremity; L03.116 Cellulitis of left lower limb; R60.0 Localized edema; I48.91 Unspecified atrial fibrillation; I25.10 Atherosclerotic heart disease of native coronary artery without angina pectoris; M16.10 Unilateral primary osteoarthritis, unspecified hip; E78.00 Pure hypercholesterolemia, unspecified; K76.89 Other specified diseases of liver; E78.5 Hyperlipidemia, unspecified; E66.9 Obesity, unspecified; F17.200 Nicotine dependence, unspecified, uncomplicated; Z68.21 Body mass index [BMI] 21.0-21.9, adult; X58.XXXD Exposure to other specified factors, subsequent encounter ==

== ENCOUNTER → 2021-01-27 | Outpatient (CLI) | payer OTHER, MEDICARE | LOC: HYPER 13:16 | PROVIDERS: ATTEND Emergency Medicine | DX: S81.802D Unspecified open wound, left lower leg, subsequent encounter (principal); I87.332 Chronic venous hypertension (idiopathic) with ulcer and inflammation of left lower extremity; L97.822 Non-pressure chronic ulcer of other part of left lower leg with fat layer exposed; I87.301 Chronic venous hypertension (idiopathic) without complications of right lower extremity; S81.811D Laceration without foreign body, right lower leg, subsequent encounter; L03.116 Cellulitis of left lower limb; R60.0 Localized edema; I48.91 Unspecified atrial fibrillation; I25.10 Atherosclerotic heart disease of native coronary artery without angina pectoris; I42.9 Cardiomyopathy, unspecified; M16.10 Unilateral primary osteoarthritis, unspecified hip; E78.00 Pure hypercholesterolemia, unspecified; K76.89 Other specified diseases of liver; E78.5 Hyperlipidemia, unspecified; E66.9 Obesity, unspecified; F17.200 Nicotine dependence, unspecified, uncomplicated; Z68.21 Body mass index [BMI] 21.0-21.9, adult; X58.XXXD Exposure to other specified factors, subsequent encounter ==

== ENCOUNTER → 2021-02-02 | Outpatient (CLI) | payer OTHER, MEDICARE | LOC: SJCVCIMAG 11:32 | PROVIDERS: ATTEND Nuclear Medicine Nuclear Cardiology | DX: M79.605 Pain in left leg (principal); M79.604 Pain in right leg ==

== ENCOUNTER → 2021-02-03 | Outpatient (CLI) | payer OTHER, MEDICARE | LOC: HYPER 10:49 | PROVIDERS: ATTEND Emergency Medicine | DX: S81.812D Laceration without foreign body, left lower leg, subsequent encounter (principal); S81.811D Laceration without foreign body, right lower leg, subsequent encounter; I87.332 Chronic venous hypertension (idiopathic) with ulcer and inflammation of left lower extremity; L97.822 Non-pressure chronic ulcer of other part of left lower leg with fat layer exposed; R60.0 Localized edema; S80.822A Blister (nonthermal), left lower leg, initial encounter; I48.91 Unspecified atrial fibrillation; I25.10 Atherosclerotic heart disease of native coronary artery without angina pectoris; M16.10 Unilateral primary osteoarthritis, unspecified hip; E78.00 Pure hypercholesterolemia, unspecified; K76.9 Liver disease, unspecified; E78.5 Hyperlipidemia, unspecified; E66.9 Obesity, unspecified; F17.200 Nicotine dependence, unspecified, uncomplicated; Z68.21 Body mass index [BMI] 21.0-21.9, adult; Z79.899 Other long term (current) drug therapy; X58.XXXA Exposure to other specified factors, initial encounter; X58.XXXD Exposure to other specified factors, subsequent encounter; Y93.89 Activity, other specified; Y92.89 Other specified places as the place of occurrence of the external cause; Y99.8 Other external cause status ==

== ENCOUNTER → 2021-02-17 | Outpatient (CLI) | payer OTHER, MEDICARE | LOC: HYPER 13:51 | PROVIDERS: ATTEND Emergency Medicine | DX: S81.812D Laceration without foreign body, left lower leg, subsequent encounter (principal); S81.811D Laceration without foreign body, right lower leg, subsequent encounter; I87.332 Chronic venous hypertension (idiopathic) with ulcer and inflammation of left lower extremity; L97.822 Non-pressure chronic ulcer of other part of left lower leg with fat layer exposed; R60.0 Localized edema; S80.822D Blister (nonthermal), left lower leg, subsequent encounter; I48.91 Unspecified atrial fibrillation; I42.9 Cardiomyopathy, unspecified; I25.10 Atherosclerotic heart disease of native coronary artery without angina pectoris; M16.10 Unilateral primary osteoarthritis, unspecified hip; E78.00 Pure hypercholesterolemia, unspecified; K76.9 Liver disease, unspecified; E78.5 Hyperlipidemia, unspecified; E66.9 Obesity, unspecified; F17.200 Nicotine dependence, unspecified, uncomplicated; Z68.21 Body mass index [BMI] 21.0-21.9, adult; Z79.899 Other long term (current) drug therapy; X58.XXXD Exposure to other specified factors, subsequent encounter ==

== ENCOUNTER → 2021-02-25 | Outpatient (CLI) | payer OTHER, MEDICARE | LOC: HYPER 08:06 | PROVIDERS: ATTEND Emergency Medicine | DX: S81.812D Laceration without foreign body, left lower leg, subsequent encounter (principal); I87.332 Chronic venous hypertension (idiopathic) with ulcer and inflammation of left lower extremity; L97.822 Non-pressure chronic ulcer of other part of left lower leg with fat layer exposed; R60.0 Localized edema; I48.91 Unspecified atrial fibrillation; I25.10 Atherosclerotic heart disease of native coronary artery without angina pectoris; M16.10 Unilateral primary osteoarthritis, unspecified hip; E78.00 Pure hypercholesterolemia, unspecified; E78.5 Hyperlipidemia, unspecified; K76.89 Other specified diseases of liver; E66.9 Obesity, unspecified; F17.200 Nicotine dependence, unspecified, uncomplicated; Z68.21 Body mass index [BMI] 21.0-21.9, adult; Z79.899 Other long term (current) drug therapy; X58.XXXD Exposure to other specified factors, subsequent encounter ==

== ENCOUNTER → 2021-03-11 | Outpatient (CLI) | payer OTHER, MEDICARE | LOC: HYPER 08:26 | PROVIDERS: ATTEND Emergency Medicine | DX: S81.811D Laceration without foreign body, right lower leg, subsequent encounter (principal); I87.332 Chronic venous hypertension (idiopathic) with ulcer and inflammation of left lower extremity; L97.822 Non-pressure chronic ulcer of other part of left lower leg with fat layer exposed; I87.301 Chronic venous hypertension (idiopathic) without complications of right lower extremity; S81.802D Unspecified open wound, left lower leg, subsequent encounter; R60.0 Localized edema; I25.10 Atherosclerotic heart disease of native coronary artery without angina pectoris; M16.10 Unilateral primary osteoarthritis, unspecified hip; E78.00 Pure hypercholesterolemia, unspecified; E78.5 Hyperlipidemia, unspecified; K76.89 Other specified diseases of liver; F17.200 Nicotine dependence, unspecified, uncomplicated; Z79.899 Other long term (current) drug therapy; W22.8XXD Striking against or struck by other objects, subsequent encounter ==